=== PATIENT | male | born 1980 | race Caucasian/White ===

== ENCOUNTER 2020-06-09 18:14 | Emergency (ER) | payer SELFPAY ==
[2020-06-09 18:24] VITALS: BP 151/95; PULSE 75; RESP 20; TEMP 37.1; O2SAT 99
--- NOTE | 2020-06-09 18:45 | ED.EAR ---
HPI - Ear Problem General Chief complaint: Ear Stated complaint: L/ear pain Time Seen by Provider: 06/09/20 18:29 Source: patient and RN notes reviewed Mode of arrival: ambulatory Limitations: no limitations History of Present Illness HPI Narrative: Patient presents today complaining of left ear pain intermittently x1 month that has worsened over the last week. States pain increases and spreads down to his TM joint. Worsens when he chews and opens and closes his mouth. States he feels that his molars are not lining up properly when he closes his mouth over the past week, since his ear pain has worsened. Denies pain in his teeth. He does report some swelling to the ear canal, but denies drainage. States he has been cleaning his ear canal with hydrogen peroxide. Last cleaning was last night. Denies any sick symptoms to include fever, cough, congestion, rhinorrhea, sore throat. He has been taking Aleve or ibuprofen without relief. Denies that he grits or grinds his teeth. States he does see a dentist for checkup every 6 months. Has an appointment set up with his PCP in 4 days, but states he could not wait that long for evaluation. MD Complaint: ear pain Location: left ear Related Data Home Medications Medication Instructions Recorded Confirmed No Home Medications 06/09/20 06/09/20 Allergies Allergy/AdvReac Type Severity Reaction Status Date / Time No Known Allergies Allergy Verified 06/09/20 18:30 Review of Systems Review of Systems: Narrative: CONSTITUTIONAL: Denies body aches, fever, chills, or sweats. EYES: Denies visual changes, redness, or discharge. ENT: Denies rhinorrhea, congestion, sore throat. + Left ear pain, left jaw pain CARDIOVASCULAR: Denies chest pain, palpitations, or edema. RESPIRATORY: Denies cough or dyspnea. GASTROINTESTINAL: Denies abdominal pain, nausea, vomiting, or diarrhea. GENITOURINARY: Denies dysuria or hematuria. SKIN: Denies rash, itching, or wounds. MUSCULOSKELETAL: Denies back pain, joint pain, or myalgia. NEUROLOGIC: Denies headache, numbness, tingling, or weakness. PSYCH: Denies depression or anxiety. PMFSH Comments At time of signature, I have reviewed and agree with nursing past medical, surgical, social and family history unless otherwise noted. Please see nursing chart for further information. There is no relevant family history pertinent to the presenting complaint Exam Narrative: Exam Narrative: GENERAL: Well-appearing, well-nourished, and in no acute distress. HEAD: Normocephalic, atraumatic. EYES: EOMI. No redness or drainage. Conjunctivae normal. ENT: Mucous membranes pink and moist. Nares clear. No rhinorrhea. Right TM and canal normal. Left canal normal. Left TM is munoz and very dull. Clear fluid in the canal, presumably peroxide. No purulent discharge in the canal. No erythema of the canal. No pre or postauricular lymphadenitis. Patient has tenderness with palpation of the left TM joint. No crepitus or clicking with opening and closing of the mandible. Difficult to appreciate any scant swelling of the jawline due to patient's facial hair, but no very obvious swelling was noted. NECK: Normal AROM. Supple. No lymphadenopathy. CHEST: No respiratory distress. EXTREMITIES: Normal range of motion. No edema. SKIN: Warm, dry, no rash. Capillary refill normal. Normal skin turgor. NEURO: No focal deficits. Alert and oriented x3. Gait steady. PSYCH: Normal affect. No signs of depression or anxiety. Course Course Emergency Course: I believe patient's symptoms are coming from pain in his temporomandibular joint. I will treat him with some Flexeril and have him follow-up with a dentist and/or his PCP. As patient feels that his ear canal is swollen and his TM is dull, I will go ahead and also treat him with some antibiotics. He has follow-up scheduled in 4 days, so this is an appropriate amount of time to court of appeals judge whether or not these interventions will be helpful
[2020-06-09 18:59] VITALS: BP 140/90
== END 2020-06-09 19:00 | disposition home or self-care (01) ==
PROVIDERS: Emergency Provider Nurse Practitioner; PCP Internal Medicine
DX: H92.02 Otalgia, left ear (principal); M26.622 Arthralgia of left temporomandibular joint
CPT/HCPCS: 99213; G0463

== ENCOUNTER 2020-06-11 19:14 | Emergency (ER) | payer SELFPAY ==
[2020-06-11 19:19] VITALS: BP 177/86; PULSE 93; RESP 18; TEMP 36.8; O2SAT 99
[2020-06-11] MEDS: HYDROcodone/acetaminophen (*CRX) 7.5-325 MG TABLET 1 TAB PO (19:49)
[2020-06-11] MEDS: CIPROFLOXACIN HC OTIC 10 ML 3 DROP LEFT EAR (19:49)
--- NOTE | 2020-06-11 19:59 | ED.GENADULT ---
HPI - General Adult General Chief complaint: Ear Stated complaint: left ear pain Time Seen by Provider: 06/11/20 19:25 Source: patient Mode of arrival: ambulatory Limitations: no limitations History of Present Illness HPI narrative: Patient is a 39-year-old male who presents to emergency department for evaluation of left ear pain and face pain was seen several days ago after he developed left ear pain and jaw pain with some swelling was placed on Augmentin patient has been placing hydrogen peroxide in the ear and notes now his ear is swollen shut and he is having difficulty hearing from the ear with moderate aching pain patient denies other URI symptoms presents in no distress notes moderate aching pain worse with touch and activity Related Data Allergies Allergy/AdvReac Type Severity Reaction Status Date / Time No Known Allergies Allergy Verified 06/09/20 18:30 Review of Systems Review of Systems: All systems reviewed & are unremarkable except as noted in HPI and below PMFSH Social History Social History (Updated 06/11/20 @ 20:01 by Naresh Aguilar PA-C) Smoking status: Never smoker Exam Narrative: Exam Narrative: GENERAL: Well-appearing, well-nourished, and in no acute distress. HEAD: Normocephalic, atraumatic. EYES: PERRLA and EOMI. ENT: Nares clear, no rhinorrhea or epistaxis. Mucous membranes moist. Oropharynx without tonsillar hypertrophy exudate or other lesions. Left external canal is swollen shot no drainage no cellulitic changes slight swelling in the preauricular region nothing postauricular swollen or erythematous NECK: Supple. No adenopathy or masses. CHEST: Clear to auscultation. No respiratory distress. No wheezes rales or rhonchi HEART: Regular rate and rhythm. No murmur heard. EXTREMITIES: Normal range of motion. No edema. SKIN: Warm, dry, no rash. NEURO: No focal deficits. Alert and oriented x3. PSYCH: Normal mood and affect. Course Course Emergency Course: Patient in the room in no distress aware of case findings treatment plan and diagnosis Vital Signs Vital signs: Vital Signs Temperature 98.2 F 06/11/20 19:19 Pulse Rate 93 06/11/20 19:19 Respiratory Rate 18 06/11/20 19:19 Blood Pressure 177/86 H 06/11/20 19:19 Pulse Oximetry 99 06/11/20 19:19 Temperature 98.2 F 06/11/20 19:19 Pulse Rate 93 06/11/20 19:19 Respiratory Rate 18 06/11/20 19:19 Blood Pressure 177/86 H 06/11/20 19:19 Pulse Oximetry 99 06/11/20 19:19 Medical Decision Making MDM Narrative Medical decision making narrative: Patient with otitis externa felt appropriate for outpatient reevaluation by ENT ear wick was placed in the emergency department with Cipro drops started will be continued on his antibiotics Vital Signs Vital Signs: Vital Signs Temperature 98.2 F 06/11/20 19:19 Pulse Rate 93 06/11/20 19:19 Respiratory Rate 18 06/11/20 19:19 Blood Pressure 177/86 H 06/11/20 19:19 Pulse Oximetry 99 06/11/20 19:19 Temperature 98.2 F 06/11/20 19:19 Pulse Rate 93 06/11/20 19:19 Respiratory Rate 18 06/11/20 19:19 Blood Pressure 177/86 H 06/11/20 19:19 Pulse Oximetry 99 06/11/20 19:19 Discharge Plan Discharge Clinical Impression: Otitis externa Patient Disposition: Home, Self-Care Condition: Stable Instructions: Antibiotic Form, Otitis Externa (ED) Additional Instructions: Follow-up with ear nose and throat doctor in the next 2 days to set up for reevaluation. Go to ER for shortness of breath, difficulty breathing, chest pain, fever/chills, weakness, nauseau/vomitting, or any increase in redness swelling or pain etc. or any other concerns. Place 3 drops of the Cipro HC in the left ear twice daily Take any prescribed medications as directed. Follow patient education sheets If you do not have a drug allergy to tylenol or motrin and can tolerate it then take tylenol or motrin as needed for discomfort/pain. Prescriptions: New
== END 2020-06-11 20:20 | disposition home or self-care (01) ==
PROVIDERS: Emergency Provider Emergency Medicine; PCP Internal Medicine
DX: H60.92 Unspecified otitis externa, left ear (principal)
CPT/HCPCS: 99283; A9270

== ENCOUNTER 2021-11-01 08:45 | Outpatient (CLI) | payer OTHER, SELFPAY ==
--- NOTE | 2021-11-01 11:00 | NEURO_ITS ---
Impression: # Complains of numbness of hand and nocturnal paresthesia. # Bilateral Carpal Tunnel Syndrome. # No ulnar neuropathy. # Normal needle/EMG exam. Nerve Conduction Studies Anti Sensory Summary Table Stim Site NR Peak (ms) P-T Amp (?V) Site1 Site2 Delta-P (ms) Dist (cm) Thierno (m/s) Left Median Anti Sensory (2-3nd Digit) Wrist 3.5 85.6 Wrist 2-3nd Digit 3.5 14.0 40 Wrist 3.8 64.6 Wrist 2-3nd Digit 3.5 14.0 40 Right Median Anti Sensory (2-3nd Digit) Wrist 4.1 27.7 Wrist 2-3nd Digit 4.1 14.0 34 Wrist 4.2 36.8 Wrist 2-3nd Digit 4.1 14.0 34 Left Radial Anti Sensory (Base 1st Digit) Wrist 2.0 24.5 Wrist Base 1st Digit 2.0 0.0 Right Radial Anti Sensory (Base 1st Digit) Wrist 2.3 16.6 Wrist Base 1st Digit 2.3 0.0 Left Ulnar Anti Sensory (5th Digit) Wrist 2.5 68.4 Wrist 5th Digit 2.5 14.0 56 Right Ulnar Anti Sensory (5th Digit) Wrist 2.6 32.0 Wrist 5th Digit 2.6 14.0 54 Motor Summary Table Stim Site NR Onset (ms) O-P Amp (mV) Site1 Site2 Delta-0 (ms) Dist (cm) Thierno (m/s) Left Median Motor (Abd Poll Brev) Wrist 4.7 3.6 Elbow Wrist 5.2 29.0 56 Elbow 9.9 4.6 Right Median Motor (Abd Poll Brev) Wrist 4.4 3.0 Elbow Wrist 5.2 29.0 56 Elbow 9.6 2.7 Left Ulnar Motor (Abd Dig Minimi) Wrist 2.5 5.2 A Elbow Wrist 5.0 30.0 60 A Elbow 7.5 4.8 Right Ulnar Motor (Abd Dig Minimi) Wrist 2.8 5.9 A Elbow Wrist 5.9 34.0 58 A Elbow 8.7 5.3 F Wave Studies NR F-Lat (ms) L-R F-Lat (ms) Left Median (Mrkrs) (Abd Poll Brev) 30.29 0.92 Right Median (Mrkrs) (Abd Poll Brev) 29.36 0.92 Left Ulnar (Mrkrs) (Abd Dig Min) 29.42 0.24 Right Ulnar (Mrkrs) (Abd Dig Min) 29.65 0.24 EMG Side Muscle Nerve Root Ins Act Fibs Amp Dur Recrt Comment Right 1stDorInt Ulnar C8-T1 Nml Nml Nml Nml Nml Right Ext Indicis Radial (Post Int) C7-8 Nml Nml Nml Nml Nml Right Ext Digitorum Radial (Post Int) C7-8 Nml Nml Nml Nml Nml Right BrachioRad Radial C5-6 Nml Nml Nml Nml Nml Right PronatorTeres Median C6-7 Nml Nml Nml Nml Nml Right Abd Poll Brev Median C8-T1 Nml Nml Nml Nml Nml Left 1stDorInt Ulnar C8-T1 Nml Nml Nml Nml Nml Left Ext Indicis Radial (Post Int) C7-8 Nml Nml Nml Nml Nml Left Ext Digitorum Radial (Post Int) C7-8 Nml Nml Nml Nml Nml Left BrachioRad Radial C5-6 Nml Nml Nml Nml Nml Left PronatorTeres Median C6-7 Nml Nml Nml Nml Nml Left Abd Poll Brev Median C8-T1 Nml Nml Nml Nml Nml MTDD
== END 2021-11-01 08:46 | disposition home or self-care (01) ==
LOC: ANHNEURO 08:46
PROVIDERS: PCP Internal Medicine; Visit Provider Internal Medicine
DX: G56.03 Carpal tunnel syndrome, bilateral upper limbs (principal); R20.2 Paresthesia of skin
CPT/HCPCS: 95886; 95911

== ENCOUNTER 2024-03-11 14:20 | Outpatient (CLI) | payer OTHER, SELFPAY ==
--- NOTE | ~2024-03-11 | US_ITS ---
EXAMINATION: US scrotum doppler DATE: 03/11/2024 15:36 INDICATION: Right scrotal pain. TECHNIQUE: Testicular sonogram utilizing grayscale and Doppler COMPARISON: None. FINDINGS: The right testis measures 4.3 x 2.0 x 3.1 cm. The left testis measures 4.6 x 2.0 x 2.7 cm. Symmetric normal grayscale appearance to both testes. There is tubular ectasia of the rete testes at the left t estis. There is normal vascular flow to both testes. The right epididymis is normal with normal vascu lar flow. There are couple anechoic left epididymal cysts the largest measuring 2.2 cm in maximal thien meter and the smaller measuring 6 mm diameter. The left epididymis is otherwise normal with normal va scular flow. There is no varicocele or hydrocele. IMPRESSION: 1. Typical appearance of tubular ectasia of the rete testes in the left testis. Otherwise normal sherrie ateral testis. 2. A couple epididymal cysts at the left epididymis, the larger measuring 2.1 cm in maximal diameter. Reviewed, dictated and finalized at location A. IMPRESSION: 1. 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 Otherwise normal bilateral testis. 2. A couple epididymal cysts at the left epididymis, the larger measuring 2.1 c m in maximal diameter.
== END 2024-03-11 14:21 | disposition home or self-care (01) ==
LOC: ANHIMG 14:23
PROVIDERS: PCP Nurse Practitioner Family; Visit Provider Nurse Practitioner Family
DX: N50.3 Cyst of epididymis (principal)
CPT/HCPCS: 76870; 93976

== ENCOUNTER 2024-06-02 03:13 | Day surgery (SDC) | payer OTHER, SELFPAY ==
[2024-05-22 11:30] VITALS: BMI 35.6
[2024-06-02 06:42] VITALS: BP 134/87; PULSE 76; RESP 18; TEMP 36.1; O2SAT 98; BMI 35.7
[2024-06-02] MEDS: LACTATED RINGERS 1,000 ML 150 ML IV CONT (06:50)
--- NOTE | 2024-06-02 07:32 | P.PNAN_ITS ---
Anes - Initial Pre Proc Eval Procedure: Operation Date: 06/02/24 08:00 Proposed Procedures p Screening Colonoscopy - James Matson MD Date/Time: 06/02/24 07:32 Surgeon: James Matson MD Pre Op Diagnosis: colon cancer Patient Data Age: 43 Gender: M Height: 1.83 m Weight: 119.5 kg Last Vital Signs Temp 36.1 C L 06/02/24 06:42 Pulse 76 06/02/24 06:42 Resp 18 06/02/24 06:42 BP 134/87 06/02/24 06:42 Pulse Ox 98 06/02/24 06:42 O2 Del Method Room Air 06/02/24 06:42 Allergies Allergy/AdvReac Type Severity Reaction Status Date / Time No Known Allergies Allergy Verified 06/02/24 06:41 Home Medications Medication Instructions Recorded Confirmed Type loratadine 10 mg tablet (Claritin) 10 mg PO DAILY PRN allergy 06/11/20 06/02/24 Rx symptoms #14 tabs amlodipine 5 mg tablet See Rx Instructions .Route 02/26/24 06/02/24 Rx .COMPLEX #90 tabs meloxicam 15 mg tablet See Rx Instructions .Route 05/06/24 06/02/24 Rx .COMPLEX #30 tabs Patient hx anesthesia problems: none Family hx anesthesia problems: none Results Review: All pre-operative results and documents have been reviewed as part of the pre- operative evaluation. [facility] Past Medical History Medical History (Updated 06/02/24 @ 07:32 by Xander Villegas MD) HTN (hypertension) SALLY (obstructive sleep apnea) Social History Social History Smoking packs per day: 1 Smoking cigarettes per day: 20.0 Smoking status: Former smoker Tobacco type: cigarettes and smokeless tobacco Alcohol intake: current Drinks per week: 6 Living arrangements: with family Spiritual care concerns: No Anes - Eval Final PreProcedure Day of Procedure 06/02/24 07:32 Patient weight: obese Heart: regular rate and rhythm Lungs: clear to auscultation Airway: Mallampati scale class III Neurological: alert and oriented Last oral intake: 2 hours (chewed tobacco) ASA classification: III Emergent: no Anesthetic plan: proceed Anesthesia type and monitoring: general GIVS and standard monitoring Results Review: All pre-operative results and documents have been reviewed as part of the pre- operative evaluation. Informed Consent: The patient's anesthetic plan and its attendant risks and benefits were discussed with the patient/family/POA. Questions were solicited and answers provided to the satisfaction of the patient/family/POA.
[2024-06-02] MEDS: ONDANSETRON INJ 4 MG/2 ML VIAL IV PUSH (07:39)
[2024-06-02] MEDS: FAMOTIDINE 20 MG/2 ML VIAL IV PUSH (07:39)
--- NOTE | 2024-06-02 07:46 | PM.HPGS ---
History of Present Illness History of Present Illness Consent: Risks, benefits, and alternatives have been discussed and questions answered. Patient agrees to proceed with procedure. Chief complaint: colon cancer screening Narrative: Raul Cardoso is a 43 year old male here for first screening colonoscopy Review of Systems Review of Systems: All systems reviewed & are unremarkable except as noted in HPI and below PMFSH Past Medical History Medical History (Updated 06/02/24 @ 07:48 by James Matson MD) Colon cancer screening HTN (hypertension) SALLY (obstructive sleep apnea) Social History Social History Smoking packs per day: 1 Smoking cigarettes per day: 20.0 Smoking status: Former smoker Tobacco type: cigarettes and smokeless tobacco Alcohol intake: current Drinks per week: 6 Living arrangements: with family Spiritual care concerns: No Meds Home Medications and Allergies Home Medications Medication Instructions Recorded Confirmed Type loratadine 10 mg tablet (Claritin) 10 mg PO DAILY PRN allergy 06/11/20 06/02/24 Rx symptoms #14 tabs amlodipine 5 mg tablet See Rx Instructions .Route 02/26/24 06/02/24 Rx .COMPLEX #90 tabs meloxicam 15 mg tablet See Rx Instructions .Route 05/06/24 06/02/24 Rx .COMPLEX #30 tabs Allergies Allergy/AdvReac Type Severity Reaction Status Date / Time No Known Allergies Allergy Verified 06/02/24 06:41 Vital Signs Vital Signs - 24 hr 06/02/24 06:42 Temperature 96.9 F L Pulse Rate 76 Respiratory Rate 18 Blood Pressure 134/87 Pulse Oximetry 98 Oxygen Delivery Room Air Exam Const: General: comfortable and no acute distress HENMT: Face/Nose/Sinus: Normal nares present Eyes: General: appearance normal, both eyes and all related structures Neck: Neck: no JVD Resp: Auscultation: clear to auscultation bilaterally Cardio: Rate: regular rate Rhythm: regular rhythm GI: Inspection: non-distended GI Palp: Yes Soft to palpation Skin: General skin exam: normal color Neuro: General: gait normal Speech: normal speech Extrem: General: normal to inspection Psych: Mental Status: mental status grossly normal Assessment and Plan Assessment and plan (1) Colon cancer screening: Code(s): Z12.11 - Encounter for screening for malignant neoplasm of colon Status: Acute Assessment and Plan: colonoscopy
[2024-06-02 08:04] VITALS: BP 123/80; PULSE 102; RESP 20; O2SAT 99
[2024-06-02 08:14] VITALS: BP 125/90; PULSE 81; RESP 20; O2SAT 99
[2024-06-02 08:24] VITALS: BP 133/93; PULSE 74; RESP 28; O2SAT 100
== END 2024-06-02 08:39 | disposition home or self-care (01) ==
PROVIDERS: PCP Nurse Practitioner Family; Visit Provider Internal Medicine Gastroenterology
PROC: 0DJD8ZZ Inspection of Lower Intestinal Tract, Via Natural or Artificial Opening Endoscopic (ICD-10-PCS; CPT 45378; principal; 2024-06-02 08:00)
DX: Z12.11 Encounter for screening for malignant neoplasm of colon (principal); K64.8 Other hemorrhoids; I10 Essential (primary) hypertension; G47.33 Obstructive sleep apnea (adult) (pediatric); E66.9 Obesity, unspecified; Z68.35 Body mass index [BMI] 35.0-35.9, adult; Z87.891 Personal history of nicotine dependence
CPT/HCPCS: 45378; J2405; J2704; J7120